=== PATIENT | male | born 1985 | race Caucasian/White ===

== ENCOUNTER 2022-09-04 09:27 | Emergency (ER) | payer OTHER, SELFPAY ==
[2022-09-04 09:39] VITALS: BP 159/94; PULSE 80; RESP 16; TEMP 36.6; O2SAT 95; BMI 29.3
--- NOTE | 2022-09-04 10:18 | ED_ITS ---
HPI - General Adult General Time Seen by Provider: 10:18 Date Seen: 09/04/22 Chief complaint: Alcohol/Intoxication Stated complaint: Alcohol Withdrawal Time Seen by Provider: 09/04/22 09:40 Source: patient Mode of arrival: ambulatory Limitations: no limitations History of Present Illness HPI narrative: Patient is a 37 year white male cody who has a history of alcoholism. He has been through treatment once in the past. He last drank last night he tried to stop for a couple of days. Today he feels shaky agitated his stomach is upset. He has not had withdrawal seizures or other significant withdrawal symptoms. He currently is on a waiting lis for [facility] outpatient treatment, and they have said that he can call and get set up for this. He is interested in doing that in proceeding forward. He is currently working, here with his significant other. Was drinking quite heavily at least a L a day. He has had depression anxiety has been on Lexapro and also taken naltrexone he is not taking that currently. Related Data Home Medications Medication Instructions Recorded Confirmed escitalopram oxalate 10 mg tablet 10 mg PO DAILY 09/04/22 09/04/22 (Lexapro) naltrexone 50 mg tablet 50 mg PO PRN alcohol withdrawal 09/04/22 Previous Rx's Medication Instructions Recorded lorazepam 0.5 mg tablet (Ativan) 0.5 mg PO BID-TID PRN #7 tabs 09/04/22 Allergies Allergy/AdvReac Type Severity Reaction Status Date / Time No Known Drug Allergies Allergy Verified 09/04/22 09:46 Review of Systems Status of ROS: Reports: 6 or more systems reviewed and unremarkable except as noted in History and below PFSH PFSH Social History Smoking Status: Current every day smoker What tobacco products do you use: cigarettes Smoking packs per day: 0.25 Smoking cigarettes per day: 5.0 Do you use any of these nicotine containing products: None Second hand tobacco smoke exposure: No How often do you have a drink containing alcohol: 4 or more times a week How many standard drinks containing alcohol do you have on a typical day: 10 or more How often do you have six or more drinks on one occasion: Daily or almost daily AUDIT-C Alcohol total score: 12 Non-prescribed substance use: denies use service: No Exam Narrative: Exam Narrative: Objective: Patient is alert orient x3 Does not smell of alcohol HEENT is unremarkable Pulses regular Heart rhythm regular without murmur Lungs are clear Abdomen benign soft mild epigastric tenderness no masses Extremities are no edema Neurologic nonfocal, good peripheral perfusion Const: Vital Signs, click to edit/add: Vital Signs - 24 hr 09/04/22 09:39 09/04/22 10:38 09/04/22 11:00 Temperature 97.8 F Pulse Rate [Right Pulse Oximeter] 80 81 68 Respiratory Rate 16 16 16 Blood Pressure [Ri ght Upper Arm] 159/94 H 138/87 151/93 H Pulse Oximetry 95 95 94 Oxygen Delivery Me thod Room Air Room Air Room Air 09/04/22 11:51 Temperature Pulse Rate [Right Pulse Oximeter] 70 Respiratory Rate 16 Blood Pressure [Ri ght Upper Arm] 150/86 H Pulse Oximetry 97 Oxygen Delivery Me thod Room Air Course Vital Signs Vital signs: Initial Vital Signs Temperature 97.8 F 09/04/22 09:39 Temperature Source Temporal Artery Scan 09/04/22 09:39 Pulse Rate 80 09/04/22 09:39 Respiratory Rate 16 09/04/22 09:39 Blood Pressure 159/94 H 09/04/22 09:39 Blood Pressure Mean 115 09/04/22 09:39 Blood Pressure Position Sitting 09/04/22 09:39 Pulse Oximetry 95 09/04/22 09:39 Oxygen Delivery Method 09/04/22 09:39 Vital Signs Temperature 97.8 F 09/04/22 09:39 Pulse Rate 80 09/04/22 09:39 Respiratory Rate 16 09/04/22 09:39 Blood Pressure 159/94 H 09/04/22 09:39 Pulse Oximetry 95 09/04/22 09:39 Oxygen Delivery Method 09/04/22 09:39 Temperature 97.8 F 09/04/22 09:39 Pulse Rate 70 09/04/22 11:51 Respiratory Rate 16 09/04/22 11:51 Blood Pressure 150/86 H 09/04/22 11:51 Pulse Oximetry 97 09/04/22 11:51 Oxygen Delivery Method 09/04/22 11:51 Medical Decision Making MDM Narrative Medical decision making narrative: Patient has a history of alcoholism, and heavy alcohol abuse. Intermittent binge drinking. At this point has some mild withdrawal symptoms. His vital signs appear largely unremarkable. He appears stable clinically. Will give him some IV fluid, some Ativan, check laboratory studies. If these are reassuring I think we could give a small dose Ativan for the next couple of days while he gets into outpatient treatment. Advised him to stop drinking completely at this point. Addendum: The patient's laboratory studies showed elevated liver function profile, otherwise reassuring. He feels a little bit better. I think he continue fluids at home as he is not vomiting, Ativan the small dose 0.5 t.i.d. p.r.n. over the next couple of days would recommend that he get into the outpatient [facility]. Return to ED as needed sooner problems or concerns. Lab Data Labs: Lab Results 09/04/22 09/04/22 Range/Units 10:28 10:28 WBC 3.61 L (4.50-11.00) K/uL RBC 5.22 (4.30-5.90) m/uL Hgb 15.8 (13.5-17.5) gm/dL Hct 46.5 (37.0-53.0) % MCV 89 (80-100) fL MCH 30 (26-34) pg MCHC 34 (32-36) gm/dL RDW Coeff of Farnaz 15.6 H (11.5-15.5) % Plt Count 130 L (140-440) K/uL Neut % (Auto) 73.1 H (42.0-72.0) % Lymph % (Auto) 19.4 L (20-44) % [place] % (Auto) 6.9 (0.0-11.0) % Eos % (Auto) 0.3 (0.0-7.0) % Baso % (Auto) 0.3 (0.0-3.0) % Neut # (Auto) 2.60 (1.7-7.0) K/uL Lymph # (Auto) 0.70 L (0.90-2.90) K/uL [place] # (Auto) 0.20 (0.00-0.90) K/UL Eos # (Auto) 0.00 (0.00-0.50) K/uL Baso # (Auto) 0.00 (0.00-0.30) K/uL Abs Immat Gran (auto) 0.00 (0.00-0.30) K/uL Imm/Tot Granulo (auto) 0.0 % Sodium 140 (135-149) mmol/L Potassium 3.9 (3.6-5.1) mmol/L Chloride 104 (96-114) mmol/L Carbon Dioxide 26 (20-32) mmol/L BUN 8 (5-24) mg/dL Creatinine 0.7 (0.5-1.5) mg/dL Estimated Creat Clear 156.88 Estimated GFR 123 ml/min Glucose 119 H (60-115) mg/dL Calcium 9.4 (8.4-10.6) mg/dL Total Bilirubin 1.3 (0.1-1.5) mg/dL Direct Bilirubin 0.2 (0.0-0.5) mg/dL AST 169 H (12-35) U/L ALT 149 H (4-50) U/L Alkaline Phosphatase 98 (40-150) U/L C-Reactive Protein < 0.5 L (0.5-1.0) mg/dL Total Protein 8.5 H (6.0-8.3) g/dL Albumin 4.9 (3.3-5.0) g/dL Amylase 74 (18-89) U/L Ethyl Alcohol < 0.01 L (0.01-0.03) % Discharge Plan Discharge Clinical Impression: Acute alcoholism Patient Disposition: Home w/ Parent or Adult Condition: Improved Additional Instructions: Light activity, avoid alcohol, seek he can treatment option [facility]. Ativan 0.5 mg t.i.d. p.r.n. 6. Dispensed. Light diet, light activity as mentio return as ne eded prior to treatment Activity Level: Light activity Diet Detail: Light diet, advance diet as tolerated Prescriptions: New lorazepam [Ativan] 0.5 mg tablet 0.5 mg PO BID-TID PRNQty: 7 0RF No Action escitalopram oxalate [Lexapro] 10 mg tablet 10 mg PO DAILY naltrexone 50 mg tablet 50 mg PO PRN (Reason: alcohol withdrawal) Label Comments: TAKE 1 TABLET BY MOUTH DAILY 2 weeks ago last time taken Stand Alone Forms: [employer] Info Instructions
[2022-09-04] MEDS: 0.9 % SODIUM CHLORIDE 1000 ml 1,000 ML 6000 ML IV (10:37)
[2022-09-04] MEDS: LORazepam 2 MG/ML inj 1 MG IVP (10:37)
[2022-09-04 10:38] VITALS: BP 138/87; PULSE 81; RESP 16; O2SAT 95
[2022-09-04 10:51] LABS: Basophils Percent Auto 0.3 % (0.0-3.0); Eosinophils Percent Auto 0.3 % (0.0-7.0); Hematocrit 46.5 % (37.0-53.0); Hemoglobin* 15.8 gm/dL (13.5-17.5); Lymphocytes Percent Auto 19.4 % (20-44); Mean Corpuscular HGB Conc 34 gm/dL (32-36); Mean Corpuscular Hemoglobin 30 pg (26-34); Mean Corpuscular Volume 89 fL (80-100); Monocytes Percent Auto 6.9 % (0.0-11.0); Neutrophils Percent Auto 73.1 % (42.0-72.0); Platelet Count* 130 K/uL (140-440); RDW Coefficient of Variation % 15.6 % (11.5-15.5); Red Blood Count 5.22 m/uL (4.30-5.90); White Blood Count* 3.61 K/uL (4.50-11.00)
[2022-09-04 11:00] VITALS: BP 151/93; PULSE 68; RESP 16; O2SAT 94
[2022-09-04 11:21] LABS: Albumin* 4.9 g/dL (3.3-5.0); Chloride* 104 mmol/L (96-114)
[2022-09-04 11:22] LABS: Potassium* 3.9 mmol/L (3.6-5.1); Slide Review Reflex No; Sodium* 140 mmol/L (135-149)
[2022-09-04 11:24] LABS: Alkaline Phosphatase* 98 U/L (40-150); Amylase* 74 U/L (18-89); Aspartate Amino Transferase* 169 U/L (12-35); Bilirubin Direct* 0.2 mg/dL (0.0-0.5); Bilirubin Total* 1.3 mg/dL (0.1-1.5); Blood Urea Nitrogen* 8 mg/dL (5-24); Carbon Dioxide* 26 mmol/L (20-32); Creatinine* 0.7 mg/dL (0.5-1.5); Est. Creatinine Clearance* 156.88; Estimated Glomerular Filt Rate 123 ml/min; Glucose* 119 mg/dL (60-115); Total Protein* 8.5 g/dL (6.0-8.3)
[2022-09-04 11:25] LABS: Alanine Aminotransferase* 149 U/L (4-50); Calcium* 9.4 mg/dL (8.4-10.6)
[2022-09-04 11:28] LABS: C Reactive Protein* < 0.5 mg/dL (0.5-1.0); Ethanol* < 0.01 % (0.01-0.03)
[2022-09-04 11:51] VITALS: BP 150/86; PULSE 70; RESP 16; O2SAT 97
--- NOTE | 2022-09-04 11:51 | ED.NURSE ---
Patient was discharged home with . Prescription for Ativan was sent into pharmacy. PIV was taken out and catheter intact. Left ambulatory.
== END 2022-09-04 11:53 | disposition home or self-care (01) ==
LOC: ED 10:50
PROVIDERS: Emergency Provider Family Medicine
DX: F10.20 Alcohol dependence, uncomplicated (principal)
CPT/HCPCS: 36415; 80048; 80076; 82077; 82150; 85025; 86140; 96374; 99284; J2060; J7030

== ENCOUNTER 2022-11-22 18:45 | Emergency (ER) | payer OTHER, SELFPAY ==
[2022-11-22 20:19] VITALS: BP 155/89; PULSE 89; RESP 16; TEMP 36.7; O2SAT 99; BMI 31.7
--- NOTE | 2022-11-22 20:28 | ED.ALCOHOL ---
HPI - Alcohol General Chief Complaint: Alcohol/Intoxication Stated Complaint: Alcohol withdrawals, Anxiety Time Seen by Provider: 11/22/22 20:14 History of Present Illness HPI narrative: Pt is a 37 year old gentleman who comes in today with anxiety related to recent cessation of alcohol. Pt has been back from treatment at [facility] for approximately 3 weeks. He has been drinking alcohol fairly steadily since that time. Pt's last drink was 6 hours ago. Pt states that if he could get his anxiety under control, he feels like he can stop drinking again. Pt has no injured himself. He has no suicidal intention. Pt is on Lexapro at 10 mg daily and has done well with the addition of Valium in the past but does not like Ativan. Pt is with his anna who is very supportive. Related Data Home Medications Medication Instructions Recorded Confirmed escitalopram oxalate 10 mg tablet 10 mg PO DAILY 09/04/22 11/22/22 (Lexapro) Previous Rx's Medication Instructions Recorded diazepam 5 mg tablet (Valium) 5 mg PO BID PRN anxiety #14 tabs 11/22/22 Allergies Allergy/AdvReac Type Severity Reaction Status Date / Time No Known Drug Allergies Allergy Verified 11/22/22 20:22 Review of Systems Status of ROS Reports: 10 or more systems reviewed and unremarkable except as noted in History and below [facility] Medical History (Updated 11/22/22 @ 20:38 by Jude Fontenot MD) Alcoholism Anxiety Social History Smoking Status: Current every day smoker What tobacco products do you use: cigarettes Smoking packs per day: 0.25 Smoking cigarettes per day: 5.0 Do you use any of these nicotine containing products: None Second hand tobacco smoke exposure: No How often do you have a drink containing alcohol: 4 or more times a week How many standard drinks containing alcohol do you have on a typical day: 10 or more How often do you have six or more drinks on one occasion: Daily or almost daily AUDIT-C Alcohol total score: 12 Non-prescribed substance use: denies use service: No Exam Narrative: Exam Narrative: EXAM GENERAL: Patient appears comfortable and well. EYES: No scleral icterus. LYMPH: No supraclavicular or cervical lymphadenopathy. SKIN: Visible skin seen during exam normal or with benign process only. EXT: No dependent lower extremity pedal edema. HEART: Regular rate and rhythm with no murmurs, rubs, or gallops. LUNGS: Clear to auscultation bilaterally with no crackles or wheezes. ABD: Soft, non tender, non distended. PSYCH: Good eye contact, speech is not pressured. Const: Vital Signs, click to edit/add: Vital Signs - 24 hr 11/22/22 20:19 Temperature 98.0 F Pulse Rate [Right Pulse Oximeter] 89 Respiratory Rate 16 Blood Pressure [Ri ght Upper Arm] 155/89 H Pulse Oximetry 99 Oxygen Delivery Me thod Room Air Course Course Hospital Course: Pt seen and examined. Vital Signs Vital signs: Initial Vital Signs Temperature 98.0 F 11/22/22 20:19 Temperature Source Temporal Artery Scan 11/22/22 20:19 Pulse Rate 89 11/22/22 20:19 Respiratory Rate 16 11/22/22 20:19 Blood Pressure 155/89 H 11/22/22 20:19 Blood Pressure Mean 111 11/22/22 20:19 Blood Pressure Position Sitting 11/22/22 20:19 Pulse Oximetry 99 11/22/22 20:19 Oxygen Delivery Method 11/22/22 20:19 Vital Signs Temperature 98.0 F 11/22/22 20:19 Pulse Rate 89 11/22/22 20:19 Respiratory Rate 16 11/22/22 20:19 Blood Pressure 155/89 H 11/22/22 20:19 Pulse Oximetry 99 11/22/22 20:19 Oxygen Delivery Method 11/22/22 20:19 Temperature 98.0 F 11/22/22 20:19 Pulse Rate 89 11/22/22 20:19 Respiratory Rate 16 11/22/22 20:19 Blood Pressure 155/89 H 11/22/22 20:19 Pulse Oximetry 99 11/22/22 20:19 Oxygen Delivery Method 11/22/22 20:19 MDM - Alcohol MDM Narrative Medical decision making narrative: Pt is a 37 year old gentleman who suffers from alcoholism who is going through fairly extreme anxiety as he tries to quit drinking. Pt is on Lexapro at 10 mg and is willing to consider going up on the dose to 20. He would also like to have access to Valium in the short term and is willing to follow up in the office with me. We made these arrangements for him. Differential Diagnosis Differential diagnosis: Likely alcohol withdrawal delirium, hypomagnesemia, alcohol intoxication, alcohol ketoacidosis and alcohol withdrawal syndrome Discharge Plan Discharge Clinical Impression: Anxiety Patient Disposition: Home, Self-Care Condition: Stable Instructions: Anxiety (ED) Additional Instructions: Medications as discussed Follow up with Dr. Fontenot in the next few weeks. Activity Level: No Restrictions Discharge Diet: Regular Prescriptions: New diazepam [Valium] 5 mg tablet 5 mg PO BID PRN (Reason: anxiety) Qty: 14 0RF No Action escitalopram oxalate [Lexapro] 10 mg tablet 10 mg PO DAILY Follow Up/Referrals: Provider,Not a Local [Primary Care Provider] - Stand Alone Forms: [employer] Info Instructions
[2022-11-22] MEDS: diazePAM 5 MG TABLET PO (20:34)
[2022-11-22 20:44] VITALS: BP 155/89; PULSE 89; RESP 16; TEMP 36.7
--- NOTE | 2022-11-22 20:46 | ED.NURSE ---
dc info gone over with pt and spouse, both verbalize understanding and agree with plan.
== END 2022-11-22 20:47 | disposition home or self-care (01) ==
PROVIDERS: Emergency Provider Internal Medicine
DX: F10.129 Alcohol abuse with intoxication, unspecified (principal); F41.9 Anxiety disorder, unspecified
CPT/HCPCS: 99283

== ENCOUNTER 2022-12-09 15:45 | Outpatient (CLI) | payer OTHER, SELFPAY | END 2022-12-09 15:46 | disposition home or self-care (01) | LOC: NFLDREF 15:45 | PROVIDERS: PCP Internal Medicine; Visit Provider Internal Medicine | DX: Z00.00 Encounter for general adult medical examination without abnormal findings (principal); F41.9 Anxiety disorder, unspecified; F10.20 Alcohol dependence, uncomplicated | CPT/HCPCS: 80053 ==

== ENCOUNTER 2023-04-26 12:15 | Outpatient (CLI) | payer OTHER, SELFPAY ==
[2023-04-26 15:18] LABS: Chlamydia DNA Amplified* NOT DETECTED (No Detected); GC DNA Amplified* NOT DETECTED (No Detected)
== END 2023-04-26 12:16 | disposition home or self-care (01) ==
PROVIDERS: PCP Internal Medicine; Visit Provider Registered Nurse
DX: R30.0 Dysuria (principal); Z11.3 Encounter for screening for infections with a predominantly sexual mode of transmission
CPT/HCPCS: 87491; 87591

== ENCOUNTER 2023-05-08 08:50 | Outpatient (CLI) | payer OTHER, SELFPAY | END 2023-05-08 08:51 | disposition home or self-care (01) | LOC: LONREF 08:50 | PROVIDERS: PCP Internal Medicine; Visit Provider Family Medicine | DX: F10.20 Alcohol dependence, uncomplicated (principal); F10.939 Alcohol use, unspecified with withdrawal, unspecified | CPT/HCPCS: 80053 ==

== ENCOUNTER 2023-05-21 14:22 | Emergency (ER) | payer OTHER, SELFPAY ==
[2023-05-21 14:39] VITALS: BP 134/82; PULSE 58; RESP 16; TEMP 36.6; O2SAT 97; BMI 28.6
--- NOTE | 2023-05-21 15:29 | CRLHL7_ITS ---
For Patients: As a result of the Century Cures Act, medical imaging exams and procedure reports are released immediately into your electronic medical record. You may view this report before your referring provider. If you have questions, please contact your health care provider. INDICATION: Fall. Head injury. TECHNIQUE: CT of the head without contrast. Coronal and sagittal reformats are included. COMPARISON: None. FINDINGS: No acute intracranial hemorrhage. No mass effect or midline shift. No hydrocephalus or extra-axial collections. White matter is within normal limits for age. No acute osseous abnormalities. Bilateral maxillary sinus retention cysts. The paranasal sinuses are clear. Normal soft tissues. IMPRESSION: IMPRESSION: 1. No acute intracranial abnormalities. Please note that all CT scans at this facility use dose modulation, iterative reconstruction, and/or weight-based dosing when appropriate to reduce radiation dose to as low as reasonably achievable. Dictated by Guillermo Carpenter MD @ 05/21/2023 4:52:22 PM (Electronically Signed)
--- NOTE | 2023-05-21 15:29 | CRLHL7_ITS ---
For Patients: As a result of the Century Cures Act, medical imaging exams and procedure reports are released immediately into your electronic medical record. You may view this report before your referring provider. If you have questions, please contact your health care provider. INDICATION: Fall. Neck injury. TECHNIQUE: CT of the cervical spine without contrast. Coronal and sagittal reformats are included. COMPARISON: None. FINDINGS: No acute fracture or traumatic malalignment of the cervical spine. Craniocervical junction alignment is maintained. Scattered cervical spondylosis without high grade neural foraminal stenosis. No high grade spinal canal stenosis as far as visualized. Imaged intracranial structures, cervical and paraspinous soft tissues are normal in appearance. The visualized pulmonary apices are clear. IMPRESSION: 1. No acute fracture or traumatic malalignment of the cervical spine. Please note that all CT scans at this facility use dose modulation, iterative reconstruction, and/or weight-based dosing when appropriate to reduce radiation dose to as low as reasonably achievable. Dictated by Guillermo Carpenter MD @ 05/21/2023 4:57:07 PM (Electronically Signed)
--- NOTE | 2023-05-21 16:22 | ED_ITS ---
HPI - Head Injury General Date Seen: 05/21/23 Chief complaint: Head Injury/Pain Stated complaint: Hit on head Friday, headaches since Time Seen by Provider: 05/21/23 15:18 Source: patient and family Mode of arrival: ambulatory Limitations: no limitations History of Present Illness HPI Narrative: Patient is a 38-year-old gentleman suffers unfortunately from alcoholism, he presents here after he had a head injury, 3 days ago, he fell coming out of a bar he does not remember this, injuring the left side of his head, does not think he had loss of consciousness but is unsure, he has had increasing headaches for the last few days. And presents here with his mother for an evaluation he also has some slight neck discomfort associated this he has had no nausea no vomiting. He is back in treatment he says for his alcohol, last drank yesterday. Says he may have full choice when this occurred fall occurred, at approximately 3:00 a.m. on Friday night. Complaint: head injury Onset (ago): day(s) Mechanism of Injury: unsure and fall Place: other (Bar) Loss of Consciousness: unsure Location of injury: frontal Severity: moderate Quality: dull and throbbing Radiation: none Other Injuries: neck Context: recent alcohol use Associated symptoms: neck pain Related Data Previous Rx's Medication Instructions Recorded escitalopram oxalate 20 mg tablet 20 mg PO QDAY Anxiety #30 tabs 12/09/22 (Lexapro) diazepam 5 mg tablet (Valium) 5 - 10 mg (1 - 2 x 5 mg) PO QID 05/21/23 PRN alcohol withdrawal #30 tabs Allergies Allergy/AdvReac Type Severity Reaction Status Date / Time No Known Drug Allergies Allergy Verified 05/21/23 14:44 Review of Systems Status of ROS: Reports: 10 or more systems reviewed and unremarkable except as noted in History and below [facility] Medical History TASNEEM (obstructive sleep apnea) ?G47.33 - Obstructive sleep apnea (adult) (pediatric) (ICD-10) Alcoholism ?F10.20 - Alcohol dependence, uncomplicated (ICD-10) Anxiety ?F41.9 - Anxiety disorder, unspecified (ICD-10) Social History Smoking Status: Former smoker What tobacco products do you use: cigarettes Smoking packs per day: 0.25 Smoking cigarettes per day: 5.0 Smoking quit date/years: <= 15 years ago Do you use any of these nicotine containing products: None Second hand tobacco smoke exposure: No How often do you have a drink containing alcohol: 4 or more times a week How many standard drinks containing alcohol do you have on a typical day: 10 or more How often do you have six or more drinks on one occasion: Daily or almost daily AUDIT-C Alcohol total score: 12 Non-prescribed substance use: denies use Little interest or pleasure in doing things: several days Feeling down, depressed, or hopeless: several days service: No Exam Narrative: Exam Narrative: Patient is a 38-year-old gentleman speaking to me normally and stabilization room 2, his pupils are equal round reactive to light, he does not have nystagmus, is TMs are normal, oropharynx normal cranial nerves 3-12 are normal is lot of bruising swelling noted around his left eye with ecchymosis. It does track down over his left maxillary region, but he is nontender to palpation. He has some mild tenderness over his frontal bone on the left side. His TMs bilaterally are normal with no hemotympanum and there is no Gale sign. His neck is fairly supple, his range of motion is from 18-6, side flexion is 20? and rotation is greater than 70?. Does have some terminal neck stiffness, tenderness over his muscles on his sides. But no cervical spine tenderness. His chest is clear bilaterally no wheezing crackles noted heart sounds are normal, abdomen is soft, no organomegaly is noted normal bowel sounds he moves all extremities independently well, Const: Vital Signs, click to edit/add: Vital Signs - 24 hr 05/21/23 14:39 05/21/23 17:00 05/21/23 17:07 Temperature 98 F Pulse Rate 60 Pulse Rate [Pulse Oximeter] 58 L 58 L Respiratory Rate 16 Blood Pressure [Ri ght Upper Arm] 134/82 116/79 Pulse Oximetry 97 95 93 Oxygen Delivery De thod Room Air Room Air 05/21/23 17:26 Temperature Pulse Rate Pulse Rate [Pulse Oximeter] 59 L Respiratory Rate 16 Blood Pressure [Ri ght Upper Arm] 117/73 Pulse Oximetry Oxygen Delivery De thod Course Course Hospital Course: I had a long talk with this patient, he clearly has a concussion, and clearly related to his alcohol use. I would requesting to me remains sober, follow-up with counseling, and follow-up with his primary care physician, he came may use now that is greater than 48 hours ibuprofen for his discomfort, is not really using any medications for this he was reassured by this. To return as needed. We went over warning signs. Vital Signs Vital signs: Initial Vital Signs Temperature 98 F 05/21/23 14:39 Temperature Source Temporal Artery Scan 05/21/23 14:39 Pulse Rate 58 L 05/21/23 14:39 Pulse Rhythm Regular 05/21/23 14:39 Pulse Strength 3+ Normal 05/21/23 14:39 Respiratory Rate 16 05/21/23 14:39 Blood Pressure 134/82 05/21/23 14:39 Blood Pressure Mean 99 05/21/23 14:39 Blood Pressure Position Sitting 05/21/23 14:39 Pulse Oximetry 97 05/21/23 14:39 Oxygen Delivery Method Room Air 05/21/23 14:39 Vital Signs Temperature 98 F 05/21/23 14:39 Pulse Rate 58 L 05/21/23 14:39 Respiratory Rate 16 05/21/23 14:39 Blood Pressure 134/82 05/21/23 14:39 Pulse Oximetry 97 05/21/23 14:39 Oxygen Delivery Method Room Air 05/21/23 14:39 Temperature 98 F 05/21/23 14:39 Pulse Rate 59 L 05/21/23 17:26 Respiratory Rate 16 05/21/23 17:26 Blood Pressure 117/73 05/21/23 17:26 Pulse Oximetry 93 05/21/23 17:07 Oxygen Delivery Method Room Air 05/21/23 17:00 MDM - Head Injury MDM Narrative Medical decision making narrative: Life-threatening differential diagnosis is considered include: Subarachnoid hemorrhage, subdural hemorrhage, epidural hemorrhage. Other differential diagnosis considered include concussion, closed head injury, or neck fracture. Medical Records Attestation: I reviewed the patient's medical records. Imaging Data CT scan - head: Attestation: I have reviewed the pertinent imaging results. My impression: Negative CT head neck, Radiologist's impression: Patient: ELSI SHAH Facility: [facility] Site . Site : 1985 Study: CT Spine Cervical w/o Contrast-05/21/2023 4:24:30 PM Ordering Physician: Karuna Gilmore Final Report: INDICATION: Fall. Neck injury. TECHNIQUE: CT of the cervical spine without contrast. Coronal and sagittal reformats are included. COMPARISON: None. FINDINGS: No acute fracture or traumatic malalignment of the cervical spine. Craniocervical junction alignment is maintained. Scattered cervical spondylosis without high grade neural foraminal stenosis. No high grade spinal canal stenosis as far as visualized. Imaged intracranial structures, cervical and paraspinous soft tissues are normal in appearance. The visualized pulmonary apices are clear. IMPRESSION: 1. No acute fracture or traumatic malalignment of the cervical spine. Please note that all CT scans at this facility use dose modulation, iterative reconstruction, and/or weight-based dosing when appropriate to reduce radiation dose to as low as reasonably achievable. Dictated by Guillermo Carpenter MD @ 05/21/2023 4:57:07 PM (Electronic Signature) Patient: ELSI SHAH Facility: [facility] Site . Site : 1985 Study: CT Head w/o Contrast-05/21/2023 4:24:12 PM Ordering Physician: Karuna Gilmore Final Report: INDICATION: Fall. Head injury. TECHNIQUE: CT of the head without contrast. Coronal and sagittal reformats are included. COMPARISON: None. FINDINGS: No acute intracranial hemorrhage. No mass effect or midline shift. No hydrocephalus or extra-axial collections. White matter is within normal limits for age. No acute osseous abnormalities. Bilateral maxillary sinus retention cysts. The paranasal sinuses are clear. Normal soft tissues. IMPRESSION: IMPRESSION: 1. No acute intracranial abnormalities. Please note that all CT scans at this facility use dose modulation, iterative reconstruction, and/or weight-based dosing when appropriate to reduce radiation dose to as low as reasonably achievable. Dictated by Guillermo Carpenter MD @ 05/21/2023 4:52:22 PM (Electronic Signature) Discharge Plan Discharge Clinical Impression: Head injury, Alcoholism, Concussion Patient Disposition: Home w/ Parent or Adult Condition: Stable Instructions: Concussion (ED), Head Injury (ED), Abuse of Alcohol (ED), Cognitive Disorders after Traumatic Brain Injury (ED), Alcohol Dependence (ED), Alcohol Use Disorder (ED) Additional Instructions: you clearly have a concussion after the fall, at this point ibuprofen 600 mg 3 times a day, the good news is there is no evidence of a bleeding, or other abnormality. Strongly encouraged alcohol cessation, follow-up for treatment, return as needed, and consider primary care follow-up. Activity Level: Light activity Prescriptions: No Action escitalopram oxalate [Lexapro] 20 mg tablet 20 mg PO QDAY Qty: 30 2RF diazepam [Valium] 5 mg tablet 5 - 10 mg PO QID PRN (Reason: alcohol withdrawal) Qty: 30 0RF Follow Up/Referrals: Jude Fontenot MD [Primary Care Provider] - Stand Alone Forms: [employer] Info Instructions
[2023-05-21 17:00] VITALS: BP 116/79; PULSE 58; O2SAT 95
[2023-05-21 17:07] VITALS: PULSE 60; O2SAT 93
[2023-05-21 17:26] VITALS: BP 117/73; PULSE 59; RESP 16
== END 2023-05-21 17:26 | disposition home or self-care (01) ==
PROVIDERS: Emergency Provider Family Medicine; PCP Internal Medicine
DX: S06.0XAA Concussion with loss of consciousness status unknown, initial encounter (principal); F10.20 Alcohol dependence, uncomplicated
CPT/HCPCS: 70450; 72125; 99284; 99285

== ENCOUNTER 2023-07-10 11:00 | Outpatient (CLI) | payer SELFPAY | END 2023-07-10 11:01 | disposition home or self-care (01) | LOC: LONREF 11:02 | PROVIDERS: PCP Internal Medicine; Visit Provider Nurse Practitioner Family | DX: F10.20 Alcohol dependence, uncomplicated (principal) | CPT/HCPCS: 80053 ==